=== PATIENT | male | born 1995 | race African-American/Black ===

== ENCOUNTER 2021-11-18 17:06 | Emergency (ER) | payer BC, SELFPAY ==
--- NOTE | ~2021-11-18 | XR_ITS ---
EXAMINATION: XR chest 2V DATE: 11/18/2021 18:30 INDICATION: Fluttering sensation in the chest TECHNIQUE: PA and lateral views of the chest were obtained. COMPARISON: None FINDINGS: The lungs are clear with no focal airspace opacities, pulmonary edema, pleural effusion or pneumothor ax. The cardiomediastinal silhouette is normal. Visualized bones and soft tissues are unremarkable. IMPRESSION: 1. Normal chest radiograph. Reviewed, dictated and finalized at location [facility]. INFRASTRUCTURE CONSULTANT IMPRESSION: 1. Normal chest radiograph.
[2021-11-18 17:11] VITALS: BP 134/94; PULSE 102; RESP 22; TEMP 36.8; O2SAT 100
--- NOTE | 2021-11-18 18:24 | ECG_ITS ---
Measurements Intervals [place] Rate: 99 P: 64 MN: 142 QRS: 2 QRSD: 92 T: 50 QT: 330 QTc: 423 Interpretive Statements SINUS RHYTHM LEFT VENTRICULAR HYPERTROPHY AND ST-T CHANGE BORDERLINE ST-T WAVE ABNORMALITY- ANTEROLATERAL LEADS BORDERLINE ECG Electronically Signed On 11-18-2021 20:13:31 MANAGER STYLE by Andi De Oliveira D.O.
--- NOTE | 2021-11-18 18:30 | ED.CHESTPAIN ---
HPI - Chest Pain General Chief Complaint: Arrhythmia/Palpitations Stated Complaint: chest spasms Time Seen by Provider: 11/18/21 18:22 Source: patient Mode of arrival: ambulatory Limitations: no limitations History of Present Illness HPI narrative: Patient is a 26-year-old male complaining of chest discomfort, described as spasms , across his chest, nonradiating, moderate, started today. Patient states that he has been feeling anxious the past few days and it could be his anxiety that is causing the symptoms. Patient denies any shortness of breath, abdominal pain, nausea, vomiting, diaphoresis, fever or chills. Review of Systems Review of Systems: All systems reviewed & are unremarkable except as noted in HPI and below Constitutional: Constitutional: Denies body ache(s), Denies chills, Denies excessive sweating, Denies fatigue, Denies fever(s), Denies headache(s), Denies lethargy, Denies malaise, Denies weakness and Denies weight loss Eyes: Eyes: Denies blurry vision, Denies change in vision and Denies loss of vision ENT: Denies dizziness, Denies ear discharge, Denies headache(s), Denies lip swelling, Denies epistaxis, Denies nasal congestion, Denies neck pain, Denies throat swelling and Denies tongue swelling Cardiovascular: Cardiovascular: Denies diaphoresis, Denies rapid heart rate, Denies edema, Denies irregular heart rhythm, Denies lightheadedness, Denies palpitations, Denies dyspnea and Denies dyspnea on exertion Respiratory: Respiratory: Denies chest congestion, Denies cough, Denies hemoptysis, Denies dyspnea and Denies dyspnea on exertion Gastrointestinal: Gastrointestinal: Denies abdominal pain, Denies melena, Denies hematochezia, Denies diarrhea, Denies nausea, Denies vomiting and Denies hematemesis Musculoskeletal: Musculoskeletal: Denies abnormal gait, Denies deformity, Denies joint swelling, Denies limited range of motion, Denies neck pain and Denies numbness Neurologic: Denies Abnormal speech present, Denies abnormal gait, Denies confusion, Denies dizziness, Denies headache(s), Denies focal weakness, Denies loss of vision, Denies numbness, Denies Other visual disturbances, Denies Sensory deficit (Neuro) and Denies weakness Psychiatric: Psychiatric: Denies confusion, Denies depression, Denies auditory hallucinations, Denies homicidal ideation and Denies suicidal ideation Endocrine: Endocrine: Denies cold intolerance, Denies excessive sweating, Denies fatigue, Denies heat intolerance and Denies palpitations Hematologic/Lymphatic: Hematologic/Lymphatic: Denies easy bleeding and Denies easy bruising Allergic/Immunologic: Allergic/Immunologic: Denies lip swelling, Denies throat swelling and Denies tongue swelling PMFSH Comments Past medical history: Anxiety Family history: Negative for coronary disease or [place] Social history: Non-smoker no EtOH or drug use Exam Const: General: cooperative, healthy appearing, comfortable, no acute distress, well developed, alert and awake; No confusion Orientation/consciousness: oriented to person, oriented to place, oriented to time, patient oriented x3 and No confusion Limitations: no limitations HENMT: Head: normal to inspection, normocephalic and atraumatic Ears: hearing grossly normal bilaterally, TM normal on the right and TM normal on the left General nose exam: Normal external nose present, Normal nares present and No nasal discharge present Face and sinus: normal facial exam Mouth: Yes Normal oral and palatal mucosa present, Yes lip normal, Yes tongue normal and Yes oropharynx normal Throat: posterior oropharynx normal, tonsils normal and uvula midline Eyes: General: appearance normal, both eyes and all related structures Pupils: Equal, round and reactive pupils present EOM: EOMs intact bilaterally Neck: Neck: normal visual inspection, full ROM, no lymphadenopathy and no meningeal signs Chest: Chest palpation & inspection: normal inspection of the chest Resp: Effort & Inspectio
[2021-11-18 18:43] LABS: Basophils Percent Auto 0.3 % (0.2-1.2); Eosinophils Percent Auto 0.1 % (0-4.4); Hematocrit 42.4 % (42.0-52.0); Hemoglobin 14.7 g/dL (14.0-18.0); Immature Granulocyte Absolute 0.01 K/mm3 (0.00-0.031); Immature Granulocyte Percent A 0.1 % (0-0.5); Lymphocytes Percent Auto 22.2 % (18.3-44.2); Mean Corpuscular HGB Conc 34.7 g/dl (32-36); Mean Corpuscular Hemoglobin 30.1 pg (26-34); Mean Corpuscular Volume 86.9 fl (80-100); Mean Platelet Volume 9.5 fl (7.4-10.4); Monocytes Absolute Auto 0.6 K/mm3 (0.1-0.6); Monocytes Percent Auto 8.7 % (2.6-8.5); Neutrophils Percent Auto 68.6 % (45.5-73.1); Platelet Count Result 196 k/mm3 (150-375); Red Blood Count 4.88 M/mm3 (4.6-6.20); Red Cell Distribution Width 12.9 % (11.5-14.5); White Blood Count 7.2 K/mm3 (4.5-10.0)
[2021-11-18 18:53] LABS: Alanine Aminotransferase 23 U/L (4-50); Albumin Level 4.9 g/dL (3.5-5.1); Alkaline Phosphatase 66 U/L (38-126); Anion Gap 8 mmol/L (8-16); Aspartate Amino Transferase 30 U/L (17-59); Bilirubin,Total 0.9 mg/dL (0.2-1.3); Blood Urea Nitrogen 12 mg/dL (9-20); Calcium 9.7 mg/dL (8.4-10.2); Carbon Dioxide 25 mmol/L (22-30); Chloride 101 mmol/L (98-107); Estimated CRCL calculation 128 ml/min; Estimated Glomerular Filt Rate > 60; Glucose 115 mg/dL (65-110); Potassium 3.4 mmol/L (3.4-5.0); Sodium 134 mmol/L (137-145)
[2021-11-18 19:04] LABS: Troponin I < 0.012 ng/mL (0.000-0.034)
[2021-11-18 20:50] VITALS: BP 153/73; PULSE 76; RESP 17; O2SAT 100
[2021-11-18 21:45] VITALS: BP 147/69; PULSE 87; RESP 16; O2SAT 100
== END 2021-11-18 21:45 | disposition home or self-care (01) ==
PROVIDERS: Emergency Provider Emergency Medicine
DX: R07.89 Other chest pain (principal); I51.7 Cardiomegaly; R94.31 Abnormal electrocardiogram [ECG] [EKG]
CPT/HCPCS: 36415; 71046; 80053; 84484; 85025; 93005; 99284

== ENCOUNTER 2024-02-13 13:03 | Emergency (ER) | payer SELFPAY ==
--- NOTE | ~2024-02-13 | CT_ITS ---
EXAMINATION: CT brain wo con DATE: 02/13/2024 14:57 INDICATION: Bilateral temporal parietal paresthesias TECHNIQUE: Computed tomography (CT) of the head was performed without intravenous contrast. The mA wa s adjusted according to patient size. Iterative reconstruction technique was employed. Exam dose: 68 1.00 mGy-cm total exam DLP. COMPARISON: None FINDINGS: No intracranial mass lesion or hemorrhage or cerebrovascular accident, midline shift or mas s effect. Normal ventricular size. Normal clements-white matter differentiation. No subdural or epidural hematoma. Posteromedial right maxillary 12 mm mucus retention cyst and minimal focal mucoperiosteal thickening of the maxillary sinuses. The paranasal sinuses and mastoid air cells are otherwise normally develope d and aerated. No fracture or bone destruction of the cranial vault. IMPRESSION: No intracranial abnormality. Reviewed, dictated and finalized at [facility]. Reviewed, dictated and finalized at location [facility].
[2024-02-13 13:12] VITALS: BP 183/75; PULSE 110; RESP 20; TEMP 36.6; O2SAT 99
--- NOTE | 2024-02-13 14:39 | ED.NEUROSD ---
HPI - Neuro Symptoms/Deficit General Chief Complaint: Neuro Symptoms/Deficit Stated Complaint: numbness/tingly in head/face Time Seen by Provider: 02/13/24 14:39 Source: patient Mode of arrival: ambulatory Limitations: no limitations History of Present Illness HPI Narrative: Patient is a 28 y/o male who presents to the ED with c/o paresthesias to his head/face. Patient reports he has been having tingling sensation to his bilateral temporal parietal regions for the last 1 month. Initially began on R side, now present in left side as well. Tingling starts behind his ears, extends across scalp and to lateral face. States sx's are intermittent throughout the day. He does feel anxious with the tingling, which in turn makes the tingling worse. He denies any other symptoms. Denies KAUR, vision changes, weakness/numbness in arms/legs, slurred speech, confusion, difficulty walking, facial droop. Related Data Allergies Allergy/AdvReac Type Severity Reaction Status Date / Time No Known Allergies Allergy Verified 02/13/24 13:04 Review of Systems Review of Systems: CONSTITUTIONAL: Denies fever, chills, or sweats. ENT: Denies Vision changes CARDIOVASCULAR: Denies chest pain. RESPIRATORY: Denies dyspnea. GASTROINTESTINAL: Denies abdominal pain, nausea, vomiting. MUSCULOSKELETAL: Denies back pain, extremity pain, myalgia. NEUROLOGIC: See HPI. All systems reviewed & are unremarkable except as noted in HPI and below Exam Narrative: GENERAL: Well appearing, obese with BMI of 34.9, non-toxic, in no acute distress. HEAD: Normocephalic, atraumatic. EYES: PERRL/EOMI, conjunctivae clear bilaterally. No nystagmus. NECK: Supple. No meningeal signs. RESPIRATORY: Airway patent, respirations nonlabored. Clear to auscultation bilaterally, no rales, rhonchi, wheezing. CARDIOVASCULAR: Regular rate and rhythm without murmurs, rubs, or gallops. Peripheral pulses 2+ and equal bilaterally. MUSCULOSKELETAL: Moves all extremities. No gross deformities. SKIN: Warm, dry, normal color. No rashes. NEURO: A&O X3. Speech clear. Follows commands. CN II-XII intact. No facial droop. No aphasia or dysarthria. Sensation grossly intact. Steady gait. No ataxic movements. Strength 5/5 in upper and lower extremities bilaterally. No pronator drift. Equal water quality technician strength bilaterally. PSYCHIATRIC: Anxious. Normal interaction. Course Vital Signs Vital signs: Vital Signs Temperature 97.9 F 02/13/24 13:12 Pulse Rate 110 H 02/13/24 13:12 Respiratory Rate 20 02/13/24 13:12 Blood Pressure 183/75 H 02/13/24 13:12 Pulse Oximetry 99 02/13/24 13:12 Temperature 97.9 F 02/13/24 13:12 Pulse Rate 90 02/13/24 14:47 Respiratory Rate 18 02/13/24 14:47 Blood Pressure 143/70 H 02/13/24 14:47 Pulse Oximetry 100 02/13/24 14:47 MDM - Neuro Symptoms/Deficit MDM Narrative Medical decision making narrative: Patient presented to ED with 1 month history of intermittent paresthesias to bilateral scalp and face. patient mildly tachycardic upon arrival, though does admit to feeling very anxious. States anxiety worsens symptoms. Upon my evaluation, patient is neurologically intact. There are no focal deficits appreciated on exam. No unilateral symptoms, no focal weakness or numbness. CT brain negative. Patient will be discharged. Discussed likelihood of anxiety contributing to sx's. Advised to follow closely with primary care doctor and Neurology for further evaluation. Given return precautions. D/C in stable condition. Medical Records Attestation: I reviewed the patient's medical records. Imaging Data Attestation: I personally reviewed and interpreted this imaging study as follows: Radiologist's impression: ITS Impressions Head CT 02/13/24 15:09 IMPRESSION: No intracranial abnormality. Discharge Plan Discharge Clinical Impression: Facial paresthesia, Anxiety Patient Disposition: Home, Self-Care Condition: Stable
[2024-02-13 14:47] VITALS: BP 143/70; PULSE 90; RESP 18; O2SAT 100
== END 2024-02-13 15:59 | disposition home or self-care (01) ==
LOC: ANHED 15:35
PROVIDERS: Emergency Provider Physician Assistant; PCP Nurse Practitioner
DX: R20.2 Paresthesia of skin (principal); F41.9 Anxiety disorder, unspecified
CPT/HCPCS: 70450; 99284